=== PATIENT | male | born 1950 | race Caucasian/White ===

== ENCOUNTER 2019-01-05 11:48 | Outpatient (CLI) | payer MEDICARE ==
--- NOTE | 2019-01-05 15:08 | MRI ---
MRI LUMBAR SPINE WITH AND WITHOUT IV CONTRAST: Date: 01/05/19 HISTORY: Lumbar stenosis with neurogenic claudication. Patient complains of lower back pain with pain radiatin g to bilateral hips for about 1 year. History of prior lumbar surgery in 2016. COMPARISON: MRI lumbar spine obtained at [facility] on 11/25/15. FINDINGS: The retroperitoneal structures demonstrate a normal MRI appearance. There is generalized heterogeneity of the bone marrow. The conus medullaris is normal in appearance and terminates at the L1 vertebral body. There is a fatt y filum terminale. T12-L1 Level: There is a broad based disc osteophyte complex with central disc protrusion. This narr ows the ventral subarachnoid space with encroachment on the anterior aspect of the spinal cord. Neura l foramina are patent. This is unchanged compared to prior exam. L1-2 Level: There is a broad based disc osteophyte complex and facet hypertrophic changes. There is generalized mild narrowing of the central spinal canal. There is mild right-sided neural foraminal na rrowing. The left neural foramen is patent. This is overall similar to prior exam. L2-3 Level: There is loss of intervertebral disc height. There are what appear to be end plate degen erative changes with a prominent left lateral disc osteophyte complex present. Broad based disc osteo phyte complex is noted with ligamentous thickening and facet hypertrophic changes. Findings result in moderate narrowing of the central spinal canal. There is enhancement of the end plates at this level , predominantly on the left, and involving the prominent left lateral disc osteophyte complex lateral ly, most likely attributable to prominent degenerative changes at this level. Osteomyelitis is favore d much less likely. There is no abnormal enhancement within the intervertebral disc space. Degenerati ve changes at this level have progressed when compared to the prior exam. There is severe narrowing o f the left neural foramen. The right neural foramen is patent. L3-4 Level: There is a broad based disc osteophyte complex. Facet hypertrophic changes and ligamento us thickening are noted. There is prominence of epidural fat posteriorly. Constellation of these find ings result in mild to moderate narrowing of the central spinal canal. There is mild to moderate bila teral neural foraminal narrowing. There is mild enhancement seen adjacent to the region of the facet joints, which is favored to most likely be attributable to inflammatory changes related to the facet degenerative change at this level as opposed to infectious process. No fluid collection is identified . L4-5 Level: There is evidence of laminectomy defect at this level, which is an interval change from prior exam. There is a mild broad based disc osteophyte complex at this level. Facet hypertrophic rafael nges are present. Mild narrowing of the central spinal canal with narrowing of the lateral recesses b ilaterally, greater on the left. There is moderate to severe right and mild left-sided neural foramin al narrowing. There is mild enhancement involving the end plates anteriorly at this level, which is a gain favored to most likely be attributable to degenerative changes as opposed to osteomyelitis. L5-S1 Level: There is a broad based disc osteophyte complex and facet hypertrophic changes with find ings greater centrally. However, there is only slight effacement of the central aspect of the thecal sac at this level. There is mild right-sided neural foraminal narrowing with moderate left-sided neur al foraminal narrowing. IMPRESSION: 1. Multilevel degenerative changes with progression of degenerative changes at the L2-3 level where there is a broad based disc osteophyte with a larger lateral left disc osteophyte complex. This resul ts in severe left-sided neural foraminal narrowing and also results in moderate to severe narrowing o f the central spinal canal. 2. Varying degrees of neural foraminal narrowing are seen at the remaining levels of the lumbar spin e as described above. 3. Areas of enhancement seen involving the vertebral body end plates at the L2-3 and L4-5 levels, as well as mild enhancement adjacent to the facet joints at the L3-4 level. These findings are most lik mali secondary to degenerative changes, as well as inflammatory changes. Infectious process is favored less likely. POS: RONIT
[2019-01-05] MEDS ORDERED: Gadobenate Dimeglumine 529 MG/1 ML (20ML VIAL) ONE (16:25)
== END 2019-01-05 11:49 | disposition home or self-care (01) ==
LOC: BICMRI 11:48
PROVIDERS: ATTEND Neurological Surgery
DX: M48.062 Spinal stenosis, lumbar region with neurogenic claudication (principal); M48.07 Spinal stenosis, lumbosacral region; M47.816 Spondylosis without myelopathy or radiculopathy, lumbar region; M25.78 Osteophyte, vertebrae
CPT/HCPCS: 72158; 82565; A9577

== ENCOUNTER 2019-03-02 08:23 | Day surgery (SDC) | payer MEDICARE ==
[2019-02-27 08:26] VITALS: BMI 28.5
[2019-03-02 09:27] LABS: Hemoglobin 15.8 g/dL (14.0-18.0); Mean Corpuscular HGB CONC 34.1 g/dL (32.0-36.0); Mean Corpuscular Hemoglobin 33.6 pg (27.0-31.0); Mean Corpuscular Volume 98.4 fL (78.0-98.0); Platelet Count 209 thou/uL (130-400); RBC Distribution Width 11.3 % (11.5-14.5)
[2019-03-02] MEDS ORDERED: Fentanyl 100 MCG/2 ML VIAL ONE ×2 (09:34→11:22)
[2019-03-02 09:46] LABS: Anion Gap 11 mmol/L (10-20); BUN (Urea Nitrogen) 13 mg/dL (8.4-25.7); Calc. Creatinine Clearance 95 mL/min (70-130); Calcium 9.8 mg/dL (7.8-10.44); Carbon Dioxide 30 mmol/L (23-31); Chloride 99 mmol/L (98-107); Estimated GFR-MDRD 72; Glucose 94 mg/dL (80-115); Potassium 4.5 mmol/L (3.5-5.1); Sodium 135 mmol/L (136-145)
--- NOTE | 2019-03-02 14:39 | OP ---
DATE OF PROCEDURE: 03/02/2019 [employer] OPERATIONS SPECIALIST: Toño Hodges PA-C PROCEDURE PERFORMED: L2-L3 laminectomy. DESCRIPTION OF PROCEDURE: The patient was brought to the operating room and intubated. He was rolled in a prone position on gel-filled chest rolls. An incision was made exposing L2 and L3 and the level was confirmed by x-ray. We performed complete L3 and inferior L2 laminectomies, completely decompressing the neural elements of L2-L3. The wound was then extensively irrigated and MAC hemostasis was secured. Vancomycin powder was applied and the wound was then closed in anatomic layers. Job ID: [id number]
== END 2019-03-02 13:12 | disposition home or self-care (01) ==
LOC: SDC 08:23
PROVIDERS: ATTEND Neurological Surgery
PROC: 01NB0ZZ Release Lumbar Nerve, Open Approach (ICD-10-PCS; principal; 2019-03-02)
DX: M48.062 Spinal stenosis, lumbar region with neurogenic claudication (principal); I10 Essential (primary) hypertension; F17.210 Nicotine dependence, cigarettes, uncomplicated; Z79.899 Other long term (current) drug therapy; Z98.1 Arthrodesis status
CPT/HCPCS: 36415; 76000; 80048; 85027; 93005; 93010; J0131; J0690; J3010; J3370

== ENCOUNTER 2019-04-27 15:47 | Inpatient (IN) | payer MEDICARE ==
--- NOTE | 2019-04-27 16:10 | RAD ---
RADIOGRAPH CHEST 1 VIEW: DATE: 04/27/2019 TIME: 3:38 PM HISTORY: 68-year-old male with cough and hypoxemia. COMPARISON: 12/06/2016 FINDINGS: There is a new mild hazy parenchymal density at the right lung base. The rest of the lungs remain adelia ar. Cardiac mediastinal silhouette is normal. No pneumothorax. IMPRESSION: Early infiltrate at right lower lung zone.
[2019-04-27 16:13] LABS: White Blood Cell (WBC) Count 10.4 thou/uL (4.8-10.8)
[2019-04-27 16:14] LABS: Mean Corpuscular HGB CONC 33.7 g/dL (32.0-36.0); Mean Corpuscular Hemoglobin 33.2 pg (27.0-31.0); Mean Corpuscular Volume 98.5 fL (78.0-98.0); Mean Platelet Volume 8.3 fL (7.4-10.4); Platelet Count 202 thou/uL (130-400); RBC Distribution Width 11.5 % (11.5-14.5); Red Blood Cell (RBC) Count 4.53 mill/uL (4.70-6.10)
[2019-04-27] MEDS ORDERED: Azithromycin 500 MG VIAL ONE (16:19)
[2019-04-27 16:33] LABS: Band 10 % (5-11); Lymphocytes 8 % (21-51); MDiff Complete? YES; Metamyelocyte 2 % (0-0); Monocytes 9 % (0-10); Neutrophil 70 % (42-75); Platelet Morphology Comment Appears Adequate; RBC Morphology Normal
[2019-04-27 16:57] LABS: CKMB 1.1 ng/mL (0-6.6)
[2019-04-27] MEDS ORDERED: cefTRIAXone\\ROCEPHIN 1 GM VIAL ONE (17:25)
[2019-04-27 17:37] LABS: ALT (SGPT) 37 U/L (8-55); AST (SGOT) 35 U/L (5-34); Alkaline Phosphatase 55 U/L (40-110); Anion Gap 12 mmol/L (10-20); BUN (Urea Nitrogen) 30 mg/dL (8.4-25.7); Bilirubin, Total 0.6 mg/dL (0.2-1.2); CK (CPK) 43 U/L (30-200); Calc. Creatinine Clearance 0 mL/min (70-130); Calcium 8.3 mg/dL (7.8-10.44); Carbon Dioxide 23 mmol/L (23-31); Chloride 103 mmol/L (98-107); Estimated GFR-MDRD 57; Globulin 3.4 g/dL (2.4-3.5); Glucose 125 mg/dL (80-115); Potassium 4.2 mmol/L (3.5-5.1); Protein, Total 6.4 g/dL (5.8-8.1); Sodium 134 mmol/L (136-145)
[2019-04-27] MEDS ORDERED: Aspirin Chewable 81 MG TAB ONE (19:07)
[2019-04-27] MEDS ORDERED: Guaifenesin DM 100-10/5 ML UDCUP PO PRN (20:58)
[2019-04-27] MEDS ORDERED: HYDROcodone/Acetaminophen 10/325 mg Tablet PO PRN (20:58)
[2019-04-27] MEDS ORDERED: Ondansetron PF 4 MG/2 ML Vial IVP PRN (20:58)
[2019-04-27] MEDS ORDERED: Acetaminophen 325 MG TAB PO PRN (20:58)
[2019-04-27] MEDS ORDERED: Loperamide HCl 2 MG CAP PO PRN (20:58)
[2019-04-27] MEDS ORDERED: Enoxaparin Sodium 40 MG/0.4 ML SYRINGE SC SCH (21:00)
[2019-04-27] MEDS: Famotidine 20 MG TAB PO SCH (22:58)
[2019-04-27] MEDS: guaiFENesin/DM ER PO SCH (22:58)
[2019-04-27] MEDS: Nicotine 14 MG PATCH TD SCH (22:58)
[2019-04-27] MEDS: Sodium Chloride 0.9% 1,000 ML IV SCH (22:59)
[2019-04-27 23:22] VITALS: BMI 26.4
[2019-04-27 23:42] LABS: Troponin I 0.049 ng/mL (< 0.028)
[2019-04-28] MEDS ORDERED: Aspirin 81 mg Enteric Coated Tablet PO SCH (00:15)
[2019-04-28 04:36] LABS: Hemoglobin 12.8 g/dL (14.0-18.0); Mean Corpuscular HGB CONC 33.6 g/dL (32.0-36.0); Mean Corpuscular Hemoglobin 33.3 pg (27.0-31.0); Mean Corpuscular Volume 99.2 fL (78.0-98.0); Mean Platelet Volume 7.7 fL (7.4-10.4); Platelet Count 179 thou/uL (130-400); RBC Distribution Width 11.6 % (11.5-14.5); Red Blood Cell (RBC) Count 3.85 mill/uL (4.70-6.10); White Blood Cell (WBC) Count 11.1 thou/uL (4.8-10.8)
[2019-04-28 04:37] LABS: Band 6 % (5-11); Lymphocytes 11 % (21-51); MDiff Complete? YES; Metamyelocyte 1 % (0-0); Monocytes 8 % (0-10); Neutrophil 74 % (42-75); Platelet Morphology Comment Appears Adequate
[2019-04-28 04:42] LABS: Anion Gap 14 mmol/L (10-20); BUN (Urea Nitrogen) 21 mg/dL (8.4-25.7); Calc. Creatinine Clearance 106 mL/min (70-130); Calcium 8.5 mg/dL (7.8-10.44); Carbon Dioxide 20 mmol/L (23-31); Chloride 106 mmol/L (98-107); Estimated GFR-MDRD 89; Glucose 88 mg/dL (80-115); Potassium 4.3 mmol/L (3.5-5.1); Sodium 136 mmol/L (136-145)
[2019-04-28 04:59] LABS: Troponin I 0.022 ng/mL (< 0.028)
--- NOTE | 2019-04-28 07:18 | HP ---
PRESENTING COMPLAINT: Shortness of breath and weakness. HISTORY OF PRESENT ILLNESS: Mr. Joselito More is a 68-year-old male with past medical history of chronic tobacco use and hypertension, on lisinopril, developed a 3-day history of worsening shortness of breath, diarrhea, body aches, and chills with cough and chest congestion. Cough is relatively minimally productive. He denies any cough contents. He denies any recent travel. He denies any chest pain. He denies any headache or runny nose. On presentation in the ED, his O2 sat was low at 79% on room air. He has been started on 2 L nasal cannula, with improvement to 97%. He admits to previous history of pneumonia. Chest x-ray shows evidence of right lower lobe base pneumonia. The patient has been admitted for pneumonia. PAST MEDICAL HISTORY: Significant for hypertension. PAST SURGICAL HISTORY: Includes knee and back surgery. HOME MEDICATION: Includes lisinopril 20 daily. SOCIAL HISTORY: The patient is residing in the community with his spouse. No history of alcohol abuse. He admits to 1 pack per day tobacco use for the last 20 years. FAMILY HISTORY: Noncontributory. No history of lung cancer. REVIEW OF SYSTEMS: All system review x14 were negative except as mentioned above. PHYSICAL EXAMINATION: VITAL SIGNS: Blood pressure 120/83, pulse of 97 down from 124 on presentation, and O2 sat 97% on 1 L nasal cannula. GENERAL: Average built, middle-aged male, calm, not in any distress, conversant. HEENT: Head is atraumatic and normocephalic. Pupils are equal and reactive to light, on nasal cannula O2. Moist oral mucosa. Anicteric. NECK: No JVD. No carotid bruit. RESPIRATORY: Good air entry except for mild increased over the right base but no wheeze or rhonchi. CARDIOVASCULAR: S1 and S2. No reproducible chest wall tenderness. ABDOMEN: Full, soft, nontender. Bowel sounds positive. EXTREMITIES: No calf tenderness. No pedal edema. NEUROLOGIC: The patient is alert and oriented. Cranial nerves 2 through 12 are grossly intact. LABORATORY DATA: WBC 10.4, neutrophil 70%, and hemoglobin 15. Sodium 134, creatinine 1.2, and glucose 125. Lactic acid 2.5, repeat of 1.0. AST and alkaline phosphatase, normal. CK 43 with CK-MB of 1.1. Troponin 0.06, repeat of 0.07. Influenza flu swab was negative for type A and B. Chest x-ray shows right base pneumonia. Right base infiltrates. EKG showed normal sinus tachycardia with a rate of 124 beats per minute. No ST segment changes. IMPRESSION: 1. Right lower lobe pneumonia. 2. Demand mediated ischemia - mild. 3. History of hypertension. PLAN: We will admit patient. We will manage patient for the following; 1. Pneumonia. We will admit patient to inpatient status. We will give gentle IV fluid hydration with normal saline. We will start empirical antibiotics with Levaquin. Obtain respiratory panel. Obtain sputum for culture and sensitivity as well as blood culture. We will give Tylenol p.r.n. for pain control. We will add Mucomyst as well as guaifenesin to mobilize mucous secretions. Monitor 24 to 48 hours and discharge when able to wean off O2. 2. Hypertension. We will hold lisinopril now given his pneumonia as well as history of tobacco use. We will do Norvasc for now. 3. DVT prophylaxis. Subcutaneus heparin. 4. Advanced directive. The patient is a full code. 5. Demand mediated ischemia. We will do serial set of cardiac enzymes. If still increasing, we will consult Cardiology, but we will monitor for now. Total time spent for review of record, discussion with patient, and evaluation was greater than 60 minutes. Job ID: [id number]
[2019-04-28] MEDS ORDERED: Heparin 5,000 UNITS/ML VIAL SC SCH (09:00)
[2019-04-28] MEDS: Lisinopril 20 MG TAB PO SCH (09:32)
[2019-04-28] MEDS: Amlodipine 5 MG TAB PO SCH (09:32)
[2019-04-28] MEDS: Famotidine 20 MG TAB PO SCH ×2 (09:32→22:19)
[2019-04-28] MEDS: guaiFENesin/DM ER PO SCH ×2 (09:32→22:19)
[2019-04-28] MEDS: Aspirin 325 MG TAB PO SCH (09:33)
[2019-04-28] MEDS: Sodium Chloride 0.9% 1,000 ML IV SCH (12:35)
[2019-04-28] MEDS: hydrALAZINE 20 MG/ML VIAL SLOW IVP PRN ×2 (17:12→23:51)
--- NOTE | 2019-04-28 18:25 | PDOC.HOSPP ---
- Subjective Encounter Date: 04/28/19 Encounter Time: 08:20 Subjective: Pt seen for followup re: pneumonia. States he feels better. - Objective Vital Signs & Weight: Vital Signs (12 hours) Temp Pulse Resp BP BP BP Pulse Ox 04/28/19 16:50 97.9 F 89 18 184/92 H 96 04/28/19 12:40 96 04/28/19 11:55 98.0 F 93 18 155/69 H 94 L 04/28/19 10:29 148/74 H 140/76 04/28/19 07:36 98.3 F 88 18 168/80 H 93 L Pulse Ox Pulse Ox 04/28/19 16:50 04/28/19 12:40 04/28/19 11:55 04/28/19 10:29 93 L 91 L 04/28/19 07:36 Weight Weight 194 lb 14.4 oz I&O: 04/27/19 04/28/19 04/29/19 06:59 06:59 06:59 Intake Total 1430 2400 Output Total 200 850 Balance 1230 1550 Result Diagrams: 04/28/19 04:06 04/28/19 04:06 Additional Labs: Labs and MARs reviewed by me EKG Reviewed by me: Yes (Tele: NSR) Hospitalist ROS - Review of Systems Respiratory: reports: cough, sputum. denies: dry, shortness of breath, hemoptysis, SOB with excertion, pleuritic pain, wheezing Gastrointestinal: reports: diarrhea. denies: nausea, vomiting, abdominal pain, constipation, melena, hematochezia - Medication Medications: Active Medications Generic Name Dose Route Start Last Admin Trade Name [place] PRN Reason Stop Dose Admin Amlodipine Besylate 2.5 mg 04/28/19 09:00 04/28/19 09:32 Norvasc PO 2.5 mg DAILY ERINN Administration Aspirin 325 mg 04/28/19 09:00 04/28/19 09:33 Aspirin PO 325 mg DAILY ERINN Administration Famotidine 20 mg 04/27/19 21:00 04/28/19 09:32 Pepcid PO 20 mg BID ERINN Administration Guaifenesin/Dextromethorphan 2 tab 04/27/19 21:00 04/28/19 09:32 Mucinex Dm PO 2 tab Q12HR ERINN Administration Hydralazine HCl 10 mg 04/28/19 17:04 04/28/19 17:12 Apresoline SLOW IVP 10 mg Q6H PRN Administration SYSTOLIC > 170 Levofloxacin 750 mg/ Device 150 mls @ 100 mls/hr 04/27/19 21:00 04/27/19 22: 59 IVPB 150 mls Q24HR ERINN Administration Sodium Chloride 1,000 mls @ 75 mls/hr 04/27/19 21:00 04/28/19 12:35 Normal Saline 0.9% IV 1,000 mls .[id number] ERINN Administration Lisinopril 20 mg 04/28/19 09:00 04/28/19 09:32 Zestril PO 20 mg DAILY ERINN Administration Nicotine 14 mg 04/27/19 21:00 04/27/19 22:58 Nicoderm Patch TD 14 mg Q24HR ERINN Administration - Exam General Appearance: NAD Eye: anicteric sclera ENT: negative: moist mucosa Neck: supple Heart: RRR, no rubs Respiratory: CTAB, no rales Gastrointestinal: soft, non-tender Psychiatric: normal affect, normal behavior Hosp A/P (1) Pneumonia Code(s): J18.9 - PNEUMONIA, UNSPECIFIED ORGANISM Status: Acute (2) Positive fecal occult blood test Status: Acute (3) HTN (hypertension) Code(s): I10 - ESSENTIAL (PRIMARY) HYPERTENSION Status: Chronic (4) Acute myocardial infarction Code(s): I21.9 - ACUTE MYOCARDIAL INFARCTION, UNSPECIFIED Status: Acute Qualifiers: Myocardial infarction type: type 2 Qualified Code(s): I21.A1 - Myocardial infarction type 2 - Plan continue antibiotics, speech therapy, out of bed/ambulate Swallow eval. Continue levofloxacin. Troponins normalized. Consult GI re +ve FOBT. Monitor vital signs, titrate antihypertensives as needed.
[2019-04-28] MEDS ORDERED: Boudreaux's Butt Paste 60 GM TUBE TOP PRN (18:54)
[2019-04-28] MEDS: Nicotine 14 MG PATCH TD SCH (22:19)
[2019-04-28] MEDS: Multivitamins, Adult 10 ML, Folic Acid 1 MG, Thiamine HCl 100 MG in Dextrose 5 %-0.45 %... IV SCH (23:47)
[2019-04-29] MEDS: Sodium Chloride 0.9% 1,000 ML IV SCH ×3 (01:49→20:21)
--- NOTE | 2019-04-29 02:14 | CON ---
DATE OF CONSULTATION: HISTORY OF PRESENT ILLNESS: Mr. More is a 68-year-old gentleman who is admitted to the hospital for pneumonia. He reports here he had 2 bouts yesterday with a little bit of blood in the stool. His symptoms began last Saturday a week ago with acute onset of nausea, vomiting, diarrhea, and then fever, chills, body aches, and cough. He was unable to sleep for about 72 hours. He reports these symptoms worsened. He took a couple of amoxicillin that he had at home on . With symptoms not improving, he came to the emergency room yesterday, where he was found to be hypoxic and have infiltrative pneumonia in the right lower lobe. He reports he has not had issues with diarrhea in the past. He had a colonoscopy by Dr. Ring states about 5 years ago in [place] with a few polyps removed. He denies any tenesmus or urgency. He has had issues with some urgency in the past for several years, but no blood in the stools. He does complain of perianal pain with wiping now as what the diarrhea has been very watery. With regard to his illness, he has had no antecedent travel. Besides the antibiotics he took on , took no others. He is feeling a little bit better now. PAST HISTORY: Hypertension. PAST SURGICAL HISTORY: Knee and multiple back surgeries. No abdominal surgeries. He had a colonoscopy about 5 years ago at the [facility], it sounds like with Dr. Ring and had a few polyps removed. SOCIAL HISTORY: Smokes two packs per day. He drinks about 20 beers per day. He does not use drugs. HOME MEDICATIONS: Lisinopril. PRESENT MEDICATIONS: 1. Tylenol. 2. Albuterol. 3. Norvasc. 4. Aspirin. 5. Pepcid. 6. Hydralazine. 7. Hydrocodone. 8. Levofloxacin. 9. Lisinopril. 10. Loperamide. 11. Nicotine. REVIEW OF SYSTEMS: Negative for dysphagia, odynophagia, melena, or hematemesis. The patient denies ever use of NSAIDs. PHYSICAL EXAMINATION: VITAL SIGNS: Temperature 97.9, he was 99 on admission on the . Blood pressure 171/84, respirations 18. HEENT: His oropharynx is without lesions. NECK: Supple. LUNGS: Notable for rhonchi and wheezing and rales on both sides. HEART: Has mild sinus tachycardia. ABDOMEN: Soft and nontender. No rebound or guarding. RECTAL: The patient is unable to tolerate a digital exam secondary to the irritation. He has quite a bit of perianal irritation. NEUROLOGICAL: He is alert, oriented to person, place, and time. LABORATORY DATA: White count 11.1. Hemoglobin 12.8, it is 15 on admission. MCV is 99, platelet count 179. Sodium 136, potassium 4.3, chloride 106, bicarb 20, BUN and creatinine are 21 and 0.86. Troponins were 0.07, now 0.02. AST was 35, ALT was 37, alkaline phosphatase 55, bilirubin 0.6. Stool is negative for Clostridium difficile; positive for occult blood. Microbiology is pending. IMAGING STUDIES: Chest x-ray, right lower lung infiltrate. ASSESSMENT: 1. This is a 68-year-old gentleman with history of hypertension, heavy smoker, and chronic alcohol use up to 20 beers per day, who became ill about a week ago with rigors, chills, myalgias, cough, vomiting, and diarrhea. Initially thought he had a virus which may have had, but he remained ill and on , took 2 amoxicillin, however was not getting better. He finally came to the emergency room on Saturday, slightly hypoxic with infiltrates and diagnosed with pneumonia. It seems to be a community-acquired pneumonia associated with diarrhea that is not uncommon. He has been ruled out for Clostridium difficile. If he does not improve, may be reasonable to have Infectious Disease see him as Legionella pneumonia can be seen with significant diarrhea as can chlamydia pneumonia. Some of the atypicals could have quite a bit of diarrhea as well. 2. Rectal bleeding. This seems to be related to perianal irritation from severe diarrhea. I would not recommend endoscopy at this point in time as he has severe respiratory compromise. 3. History of polyps. Colonoscopy 5 years ago. RECOMMENDATIONS: Give him some [employer]t P[employer] rectum. Use Imodium for his diarrhea and treat his pneumonia. If his pneumonia does not improve, I would involve ID. Job ID: [id number]
[2019-04-29 06:26] LABS: Anion Gap 8 mmol/L (10-20); BUN (Urea Nitrogen) 11 mg/dL (8.4-25.7); Calc. Creatinine Clearance 116 mL/min (70-130); Calcium 8.3 mg/dL (7.8-10.44); Carbon Dioxide 24 mmol/L (23-31); Chloride 105 mmol/L (98-107); Estimated GFR-MDRD Greater than 90; Glucose 117 mg/dL (80-115); Magnesium 1.8 mg/dL (1.6-2.6); Potassium 3.4 mmol/L (3.5-5.1); Sodium 134 mmol/L (136-145)
[2019-04-29 07:03] LABS: Hemoglobin 12.6 g/dL (14.0-18.0); Mean Corpuscular HGB CONC 33.8 g/dL (32.0-36.0); Mean Corpuscular Hemoglobin 33.6 pg (27.0-31.0); Mean Corpuscular Volume 99.3 fL (78.0-98.0); Mean Platelet Volume 7.7 fL (7.4-10.4); Platelet Count 224 thou/uL (130-400); RBC Distribution Width 11.5 % (11.5-14.5); Red Blood Cell (RBC) Count 3.76 mill/uL (4.70-6.10); White Blood Cell (WBC) Count 11.2 thou/uL (4.8-10.8)
[2019-04-29] MEDS ORDERED: Potassium Chloride 20 MEQ TAB PO SCH (08:15)
[2019-04-29 08:26] LABS: Band 5 % (5-11); Lymphocytes 18 % (21-51); MDiff Complete? YES; Metamyelocyte 1 % (0-0); Monocytes 7 % (0-10); Myelocyte 3 % (0-0); Neutrophil 65 % (42-75); Platelet Morphology Comment Appears Adequate; RBC Morphology Normal; Reactive Lymphocytes 1 % (0-10)
[2019-04-29] MEDS: guaiFENesin/DM ER PO SCH ×2 (08:33→20:23)
[2019-04-29] MEDS: Aspirin 325 MG TAB PO SCH (08:33)
[2019-04-29] MEDS: Lactinex Tablet PO SCH (08:33)
[2019-04-29] MEDS: Famotidine 20 MG TAB PO SCH ×2 (08:33→20:22)
[2019-04-29] MEDS: Amlodipine 5 MG TAB PO SCH (08:34)
[2019-04-29] MEDS: Lisinopril 20 MG TAB PO SCH (08:36)
[2019-04-29 14:39] LABS: Legionella Urinary Ag Negative (Negative)
--- NOTE | 2019-04-29 17:57 | PDOC.HOSPP ---
- Subjective Encounter Date: 04/29/19 Encounter Time: 09:00 Subjective: Pt seen for followup re: pneumonia. c/o diarrhea. Cough+, small amount of sputum. - Objective Vital Signs & Weight: Vital Signs (12 hours) Temp Pulse Resp BP BP Pulse Ox 04/29/19 16:43 98.9 F 04/29/19 11:30 98.7 F 04/29/19 08:36 185/91 H 04/29/19 08:34 96 04/29/19 08:00 98.4 F 91 22 H 185/91 H 95 04/29/19 07:22 96 Weight Weight 194 lb 14.4 oz I&O: 04/28/19 04/29/19 04/30/19 06:59 06:59 06:59 Intake Total 1430 3990 Output Total 200 1550 Balance 1230 2440 Result Diagrams: 04/29/19 05:34 04/29/19 05:34 Additional Labs: Labs and MARs reviewed by ut Hospitalist ROS - Review of Systems Respiratory: reports: cough, sputum. denies: dry, shortness of breath, hemoptysis, SOB with excertion, pleuritic pain, wheezing Gastrointestinal: reports: diarrhea. denies: nausea, vomiting, abdominal pain, constipation, melena, hematochezia - Medication Medications: Active Medications Generic Name Dose Route Start Last Admin Trade Name Freq PRN Reason Stop Dose Admin Acidophilus 1 tab 04/29/19 09:00 04/29/19 08:33 Floranex PO 1 tab DAILY ERINN Administration Amlodipine Besylate 2.5 mg 04/28/19 09:00 04/29/19 08:34 Norvasc PO 2.5 mg DAILY ERINN Administration Aspirin 325 mg 04/28/19 09:00 04/29/19 08:33 Aspirin PO 325 mg DAILY ERINN Administration Famotidine 20 mg 04/27/19 21:00 04/29/19 08:33 Pepcid PO 20 mg BID ERINN Administration Guaifenesin/Dextromethorphan 2 tab 04/27/19 21:00 04/29/19 08:33 Mucinex Dm PO 2 tab Q12HR ERINN Administration Hydralazine HCl 10 mg 04/28/19 17:04 04/28/19 23:51 Apresoline SLOW IVP 10 mg Q6H PRN Administration SYSTOLIC > 170 Levofloxacin 750 mg/ Device 150 mls @ 100 mls/hr 04/27/19 21:00 04/28/19 22: 19 IVPB 150 mls Q24HR ERINN Administration Sodium Chloride 1,000 mls @ 75 mls/hr 04/27/19 21:00 04/29/19 10:53 Normal Saline 0.9% IV 1,000 mls .[id number] ERINN Administration Multivitamins 10 ml/ Folic 1,011.2 mls @ 100 mls/hr 04/28/19 20:00 04/28/19 23:47 Acid 1 mg/ Thiamine HCl 100 mg IV 1,011.2 mls / Dextrose/Sodium Chloride Q24HR ERINN Administration Lisinopril 20 mg 04/28/19 09:00 04/29/19 08:36 Zestril PO 20 mg DAILY ERINN Administration Nicotine 14 mg 04/27/19 21:00 04/28/19 22:19 Nicoderm Patch TD 14 mg Q24HR ERINN Administration - Exam General Appearance: NAD Eye: PERRL, anicteric sclera ENT: no oropharyngeal lesions, moist mucosa Neck: supple, symmetric Heart: RRR Respiratory: CTAB Gastrointestinal: soft, non-tender Extremities: no clubbing Psychiatric: normal affect, normal behavior Hosp A/P (1) Pneumonia Code(s): J18.9 - PNEUMONIA, UNSPECIFIED ORGANISM Status: Acute (2) Positive fecal occult blood test Status: Acute (3) HTN (hypertension) Code(s): I10 - ESSENTIAL (PRIMARY) HYPERTENSION Status: Chronic (4) Acute myocardial infarction Code(s): I21.9 - ACUTE MYOCARDIAL INFARCTION, UNSPECIFIED Status: Acute Qualifiers: Myocardial infarction type: type 2 Qualified Code(s): I21.A1 - Myocardial infarction type 2 - Plan plan discussed w/ family, continue antibiotics Continue levofloxacin. Check urine Legionella antigen. Consult ID. Appreciate GI service input. Continue Imodium. Monitor vital signs, titrate antihypertensives as needed.
[2019-04-29] MEDS: Nicotine 14 MG PATCH TD SCH (20:25)
--- NOTE | 2019-04-29 21:53 | CON ---
DATE OF CONSULTATION: 04/29/2019 REASON FOR CONSULTATION: Pneumonia with diarrhea. HISTORY OF PRESENT ILLNESS: A 68-year-old who has history of hypertension and prior back surgeries and cervical surgeries, who developed general malaise, some diarrhea and respiratory symptoms for the past week. On arrival, he was a bit hypoxemic, improved with 2 L nasal cannula and he has received levofloxacin since admission. He feels somewhat improved, T-max 99.9 recently. His initial influenza test was negative. C difficile negative and respiratory culture with few respiratory kaitlynn present. Currently, he is feeling better. Denies headaches, little bit of cough, but much less than before. No sputum production. No hemoptysis. No back pain. No dyspnea, abdominal pain or diarrhea. No genitourinary symptoms. PAST MEDICAL HISTORY: Hypertension, back surgeries, knee surgery, cervical surgery. SOCIAL HISTORY: Drinks daily. Current smoker. He is retired from the [employer] industry. Lives about 75 miles from here. ALLERGIES: LATEX. MEDICATIONS: 1. Other than levofloxacin, he is on [place]. 2. Floranex. 3. DuoNeb. 4. Aspirin. 5. Mucinex. 6. Apresoline. 7. Levofloxacin. 8. Multivitamins. 9. Zinc oxide. FAMILY HISTORY: Noncontributory. PHYSICAL EXAMINATION: VITAL SIGNS: T-max 99.9, other vital signs with elevation in systolic blood pressure, pulse 96 and O2 saturation 95. SKIN: Not remarkable, no lymphadenopathy. HEENT: Ocular movements conjugate. Oral cavity normal. NECK: Supple. No jugular vein distention. LUNGS: Symmetric air entry. Few crackles on the right side base, S1-S2 regular rate without murmurs. ABDOMEN: Soft, not distended or tender. No ascites. No bladder distention, no joint inflammatory activity. EXTREMITIES: Moves extremities equally. Cognitive function appears to be intact. Legionella pneumophilia antigen negative, white cell count was 10.4, platelets were 202 with a normal differential on arrival. A little bit of increase in metamyelocytes. White cell count now is 11.2, hemoglobin 12.6, creatinine was 1.27 and now is 0.78. Liver profile with AST of 35, albumin 3.0 and CK 43. IMAGING: Chest x-ray with small area of infiltrate right lower lobe lung zone. GI consult was obtained. Dr. Oakley evaluated the patient. This was because of rectal bleeding, felt to be due to perianal irritation from diarrhea. ASSESSMENT: Chronic smoking, respiratory symptoms with diarrhea with improvement. DISCUSSION: Differential diagnosis includes respiratory viral syndrome, influenza or other respiratory virus versus a bacterial pneumonia. A respiratory virus is the more likely scenario here. Aspiration pneumonia is less likely. The antigen assays for influenza are notoriously for low sensitivity and we will go ahead and submit a respiratory virus PCR panel. The patient is anxious to go home and may consider discharge planning with followup in the outpatient setting on oral levofloxacin or doxycycline. Job ID: [id number] [facility]
[2019-04-29] MEDS: Multivitamins, Adult 10 ML, Folic Acid 1 MG, Thiamine HCl 100 MG in Dextrose 5 %-0.45 %... IV SCH (22:38)
--- NOTE | 2019-04-29 22:38 | PRG ---
DATE OF SERVICE: 04/29/2019 SUBJECTIVE: This is a 68-year-old male, hospitalized with rectal bleeding, diarrhea, and also had pneumonia. He is on IV antibiotics. His stool for C. difficile came back negative. The stool for occult blood came back positive. The patient is on antibiotic therapy. Continues to complain of productive cough. He has no chest pain, no dyspnea. His diarrhea persists. There is no abdominal pain. No nausea, vomiting. PHYSICAL EXAMINATION: VITAL SIGNS: He is afebrile. Temperature 98.9 degrees Fahrenheit, pulse is 96, blood pressure is 184/91. CARDIOVASCULAR SYSTEM: First and second heart sounds normal. LUNGS: Clear to auscultation. ABDOMEN: Soft. No organomegaly. No tenderness. No masses. CLINICAL IMPRESSION: 1. Pneumonia. 2. Diarrhea, hematochezia with negative stool for C. difficile antigen toxin. 3. Hypertension. 4. Coronary artery disease. RECOMMENDATIONS: 1. Continue IV antibiotics. 2. May obtain stool for parasites, Cryptosporidium, and also culture. Job ID: [id number]
[2019-04-29] MEDS: hydrALAZINE 20 MG/ML VIAL SLOW IVP PRN (22:44)
[2019-04-30] MEDS: Sodium Chloride 0.9% 1,000 ML IV SCH (04:55)
[2019-04-30 06:28] LABS: #Eosinphils 0.2 thou/uL (0.0-0.7); #Lymphocytes 2.2 thou/uL (1.20-3.40); #Monocytes 1.2 thou/uL (0.11-0.59); #Neutrophils 8.5 thou/uL (1.40-6.50); %Basophils 0.4 % (0.0-1.0); %Eosinophils 1.3 % (0.0-10.0); %Lymphocytes 18.2 % (21.0-51.0); %Monocytes 9.8 % (0.0-10.0); %Neutrophils 70.3 % (42.0-75.0); Hemoglobin 13.5 g/dL (14.0-18.0); Mean Corpuscular HGB CONC 33.3 g/dL (32.0-36.0); Mean Corpuscular Volume 99.1 fL (78.0-98.0); Mean Platelet Volume 7.6 fL (7.4-10.4); Platelet Count 314 thou/uL (130-400); RBC Distribution Width 11.6 % (11.5-14.5)
[2019-04-30 06:47] LABS: Anion Gap 9 mmol/L (10-20); BUN (Urea Nitrogen) 9 mg/dL (8.4-25.7); Calc. Creatinine Clearance 114 mL/min (70-130); Calcium 8.7 mg/dL (7.8-10.44); Carbon Dioxide 25 mmol/L (23-31); Chloride 103 mmol/L (98-107); Estimated GFR-MDRD Greater than 90; Glucose 97 mg/dL (80-115); Sodium 133 mmol/L (136-145)
[2019-04-30 07:44] VITALS: TEMP 98.6
[2019-04-30] MEDS: Amlodipine 5 MG TAB PO SCH (08:09)
[2019-04-30] MEDS: Lactinex Tablet PO SCH (08:10)
[2019-04-30] MEDS: guaiFENesin/DM ER PO SCH (08:10)
[2019-04-30] MEDS: Famotidine 20 MG TAB PO SCH (08:10)
[2019-04-30] MEDS: Lisinopril 20 MG TAB PO SCH (08:11)
[2019-04-30] MEDS: Aspirin 325 MG TAB PO SCH (08:11)
[2019-04-30] MEDS ORDERED: Potassium Phosphate 15 MMOL in Sodium Chloride 0.9% 250 ML 250 ML IVPB SCH (11:45)
[2019-04-30 12:04] VITALS: BP 156/82
[2019-04-30] MEDS ORDERED: PHOS-NAK 1 PKT PACK PO SCH (12:30)
--- NOTE | 2019-04-30 18:35 | DIS ---
DATE OF ADMISSION: 04/27/2019 DATE OF DISCHARGE: 04/30/2019 PRIMARY CARE PROVIDER: Louisa Laughlin, KEEGAN DISCHARGE DIAGNOSES: 1. Community-acquired pneumonia. 2. Chronic diarrhea. 3. Tobacco abuse. 4. Alcohol abuse. 5. Hyponatremia. 6. Hypokalemia. 7. Nrt-DQ-oyybadkkl myocardial infarction type 2. 8. Hypophosphatemia. 9. Hypertensive urgency. CONDITION OF PATIENT ON THE DAY OF DISCHARGE: Stable. I assessed Mr. More on the day of discharge. He denies any chest pain or shortness of breath. Vital signs are stable. S1 and S2 are heard, regular. Lungs are clear to auscultation bilaterally. CONSULTATIONS DURING THIS HOSPITALIZATION: Gastroenterology, Dr. Oakley and Infectious Diseases, Dr. Hernandez. DISCHARGE MEDICATIONS: 1. Lisinopril 20 mg daily. 2. Nicotine 14 mg patch daily. 3. Amlodipine 5 mg daily. 4. Lactobacillus one tablet daily. 5. Levofloxacin 750 mg daily. 6. Thiamine 100 mg daily. POST-DISCHARGE FOLLOWUP: The patient is advised to follow up with primary care provider in 3 to 5 days' time. HOSPITAL COURSE: Mr. More is a pleasant 68-year-old gentleman, who was admitted to [facility] on 04/27/2019, for pneumonia and chronic diarrhea. Please refer to Dr. Braga's history and physical note dated 04/27/2019, for further details. He had initially indeterminate troponins, which subsequently normalized. Initial elevation was most likely secondary to myy-EU-htqmoouru myocardial infarction type 2. He was seen by Gastroenterology and ID services. He has been started on Floranex. He also received p.r.n. Imodium, with resolution of diarrhea. He also had respiratory virus panel checked, it was negative. At the time of this dictation, final respiratory culture and blood culture reports are pending. He is advised to follow up with his primary care provider for the same. He also had elevated blood pressures. He has been started on amlodipine. He has been advised to check his blood pressure and heart rate 3 times a day and show the readings to his primary care provider. He has been advised to stop tobacco and alcohol abuse. Many thanks for allowing me to participate in your patient's care. Please feel free to contact me with any questions or concerns. ACTIVITY: No restrictions. DIET: Heart healthy. DISCHARGE DESTINATION: Home. TIME SPENT: Total amount of time spent coordinating this discharge: 32 minutes. Job ID: [id number]
== END 2019-04-30 12:52 | disposition home or self-care (01) | DRG 193 ==
LOC: ERS 15:47 → T4-A 22:24 → 2NO 22:25 → T4-A 04-28 23:37
PROVIDERS: ADMIT Internal Medicine; ATTEND Internal Medicine
DX: J18.9 Pneumonia, unspecified organism (principal); I21.A1 Myocardial infarction type 2; E87.1 Hypo-osmolality and hyponatremia; K52.9 Noninfective gastroenteritis and colitis, unspecified; F10.10 Alcohol abuse, uncomplicated; E87.6 Hypokalemia; I25.10 Atherosclerotic heart disease of native coronary artery without angina pectoris; E83.39 Other disorders of phosphorus metabolism; I16.0 Hypertensive urgency; Z86.010 Personal history of colon polyps; Z91.040 Latex allergy status
CPT/HCPCS: 36415; 71045; 80048; 80053; 82274; 82550; 82553; 83605; 83735; 84100; 84484; 85025; 87040; 87070; 87205; 87324; 87449; 87633; 87804; 87899; 93005; 94640; 94760; 96365; 96367; J0360; J0456; J0696; J1644; J1956; J3411; J7042; J7620

== ENCOUNTER 2019-07-20 08:10 | Outpatient (CLI) | payer MEDICARE ==
[2019-07-20 14:03] LABS: #Basophils 0.1 thou/uL (0.0-0.2); #Eosinphils 0.3 thou/uL (0.0-0.7); #Lymphocytes 1.9 thou/uL (1.20-3.40); #Monocytes 0.7 thou/uL (0.11-0.59); #Neutrophils 5.3 thou/uL (1.40-6.50); %Basophils 1.3 % (0.0-1.0); %Eosinophils 3.2 % (0.0-10.0); %Lymphocytes 23.2 % (21.0-51.0); %Monocytes 8.7 % (0.0-10.0); %Neutrophils 63.6 % (42.0-75.0); Mean Corpuscular HGB CONC 34.2 g/dL (32.0-36.0); Mean Corpuscular Volume 96.6 fL (78.0-98.0); Mean Platelet Volume 7.7 fL (7.4-10.4); Platelet Count 221 thou/uL (130-400); RBC Distribution Width 12.4 % (11.5-14.5); Red Blood Cell (RBC) Count 4.84 mill/uL (4.70-6.10); White Blood Cell (WBC) Count 8.2 thou/uL (4.8-10.8)
[2019-07-20 14:18] LABS: Hemoglobin A1c 4.9 % (4.0-6.0)
[2019-07-20 14:30] LABS: Anion Gap 14 mmol/L (10-20); BUN (Urea Nitrogen) 13 mg/dL (8.4-25.7); Calc. Creatinine Clearance 0 mL/min (70-130); Calcium 9.7 mg/dL (7.8-10.44); Carbon Dioxide 24 mmol/L (23-31); Chloride 105 mmol/L (98-107); Estimated GFR-MDRD 75; Glucose 84 mg/dL (80-115); Potassium 3.8 mmol/L (3.5-5.1); Sodium 139 mmol/L (136-145)
== END 2019-07-20 08:11 | disposition home or self-care (01) ==
LOC: LABBT 08:10
PROVIDERS: ATTEND Surgery
DX: Z01.818 Encounter for other preprocedural examination (principal); K63.5 Polyp of colon
CPT/HCPCS: 80048; 83036; 85025

== ENCOUNTER 2019-07-20 12:30 | Inpatient (IN) | payer MEDICARE ==
[2019-07-20 11:52] VITALS: BMI 28.5
[2019-07-28] MEDS ORDERED: ceFOXitin 2 GM/50 ML Duplex BAG ONE (07:29)
[2019-07-28] MEDS ORDERED: Dexamethasone 4 mg/ml Vial ONE (08:18)
[2019-07-28] MEDS ORDERED: Midazolam HCl 2 mg/2 ml Vial ONE (08:18)
[2019-07-28] MEDS ORDERED: Fentanyl 100 MCG/2 ML VIAL ONE ×3 (08:18→12:40)
[2019-07-28] MEDS ORDERED: Albumin 5% 500 ML ONE (09:15)
[2019-07-28] MEDS ORDERED: Ketamine 50 MG/ML (10ML VIAL) ONE (09:15)
[2019-07-28] MEDS ORDERED: Fentanyl 250 MCG/5 ML VIAL ONE (09:15)
[2019-07-28] MEDS ORDERED: Glycopyrrolate 0.2 MG/ML 5 ML SYRINGE ONE (10:19)
[2019-07-28] MEDS ORDERED: Bupivacaine HCl 0.5%/Epinephrine 1:200,000/PF 30 ml Vial ONE (10:19)
[2019-07-28] MEDS ORDERED: Rocuronium Bromide 10 MG/ML (10ML VIAL) ONE (10:19)
[2019-07-28] MEDS ORDERED: PROPOFOL 200 MG/20 ML VIAL ONE (10:19)
[2019-07-28] MEDS ORDERED: Ketorolac Tromethamine 30 MG/ML VIAL ONE ×2 (10:19)
[2019-07-28] MEDS ORDERED: Ondansetron PF 4 MG/2 ML Vial ONE (10:19)
[2019-07-28] MEDS ORDERED: PHENYLEPHRINE-NS 100 MCG/ML 10 ML SYRINGE ONE ×2 (10:19→10:49)
[2019-07-28] MEDS ORDERED: Lidocaine 1% PF 5 ML VIAL ONE (10:19)
[2019-07-28] MEDS ORDERED: Dexamethasone 20 MG/5 ML VIAL ONE ×2 (10:19)
[2019-07-28] MEDS ORDERED: Phenylephrine 10 MG/ML VIAL ONE (10:47)
[2019-07-28] MEDS ORDERED: cefOXitin 2 GM VIAL ONE (11:06)
[2019-07-28] MEDS ORDERED: Ondansetron HCl/PF 4 MG/2 ML Vial IVP PRN (11:43)
[2019-07-28] MEDS ORDERED: Promethazine HCl 25 MG/ML VIAL SLOW IVP PRN (11:43)
[2019-07-28] MEDS ORDERED: Promethazine HCl 25 MG/ML VIAL IM PRN ×3 (11:43→12:18)
[2019-07-28] MEDS ORDERED: hydrALAZINE 20 MG/ML VIAL SLOW IVP PRN (11:52)
[2019-07-28] MEDS ORDERED: Ondansetron PF 4 MG/2 ML Vial IVP PRN ×2 (11:52→12:18)
[2019-07-28] MEDS ORDERED: diphenhydrAMINE 50 MG/ML VIAL IVP PRN (12:18)
[2019-07-28] MEDS ORDERED: diphenhydrAMINE 50 MG/ML VIAL IM PRN (12:18)
[2019-07-28] MEDS ORDERED: diphenhydrAMINE 25 MG CAP PO PRN (12:18)
[2019-07-28] MEDS ORDERED: Naloxone HCl 0.4 mg/ml Vial IV PRN (12:18)
[2019-07-28] MEDS ORDERED: Zolpidem Tartrate 5 MG TAB PO PRN (12:18)
[2019-07-28] MEDS ORDERED: fentaNYL Citrate/PF 2,000 MCG in Sodium Chloride 0.9% 60 ML IV PRN (12:18)
[2019-07-28] MEDS ORDERED: Communication Order-Pharmacy FS SCH (12:30)
[2019-07-28] MEDS: D5 1/2 NS w/20 mEq KCL 1,000 ML IV SCH (14:21)
[2019-07-28] MEDS: cefOXitin Sodium/Dextrose,Iso 2 GM in Premix Bag 1 BAG IVPB SCH (18:21)
[2019-07-28] MEDS: Famotidine 20 MG TAB PO SCH (20:45)
[2019-07-28] MEDS: Famotidine/PF 20 mg/2ml Vial SLOW IVP SCH (23:49)
[2019-07-29] MEDS: cefOXitin Sodium/Dextrose,Iso 2 GM in Premix Bag 1 BAG IVPB SCH (01:19)
[2019-07-29 05:43] LABS: #Basophils 0.1 thou/uL (0.0-0.2); #Lymphocytes 1.2 thou/uL (1.20-3.40); #Monocytes 1.4 thou/uL (0.11-0.59); #Neutrophils 7.7 thou/uL (1.40-6.50); %Basophils 0.9 % (0.0-1.0); %Lymphocytes 11.3 % (21.0-51.0); %Monocytes 13.6 % (0.0-10.0); %Neutrophils 74.2 % (42.0-75.0); Hemoglobin 11.8 g/dL (14.0-18.0); Mean Corpuscular HGB CONC 31.8 g/dL (32.0-36.0); Mean Corpuscular Hemoglobin 31.4 pg (27.0-31.0); Mean Corpuscular Volume 98.7 fL (78.0-98.0); Mean Platelet Volume 7.7 fL (7.4-10.4); Platelet Count 194 thou/uL (130-400); RBC Distribution Width 11.9 % (11.5-14.5); Red Blood Cell (RBC) Count 3.75 mill/uL (4.70-6.10); White Blood Cell (WBC) Count 10.4 thou/uL (4.8-10.8)
[2019-07-29 06:07] LABS: Anion Gap 12 mmol/L (10-20); BUN (Urea Nitrogen) 12 mg/dL (8.4-25.7); Calc. Creatinine Clearance 91 mL/min (70-130); Calcium 8.7 mg/dL (7.8-10.44); Carbon Dioxide 22 mmol/L (23-31); Chloride 105 mmol/L (98-107); Estimated GFR-MDRD 69; Glucose 107 mg/dL (80-115); Potassium 4.2 mmol/L (3.5-5.1); Sodium 135 mmol/L (136-145)
[2019-07-29] MEDS: D5 1/2 NS w/20 mEq KCL 1,000 ML IV SCH ×2 (06:44→14:11)
[2019-07-29] MEDS: Famotidine 20 MG TAB PO SCH ×2 (08:59→20:51)
[2019-07-29] MEDS: Famotidine/PF 20 mg/2ml Vial SLOW IVP SCH ×2 (09:00→20:51)
--- NOTE | 2019-07-29 09:35 | OP ---
DATE OF PROCEDURE: 07/28/2019 PREOPERATIVE DIAGNOSIS: Colon mass. POSTOPERATIVE DIAGNOSIS: Colon mass. PROCEDURE PERFORMED: Extended right colectomy including splenic flexure with ileo-descending colon anastomosis, splenic flexure mobilization. ANESTHESIA: General. ESTIMATED BLOOD LOSS: 200 mL. COMPLICATIONS: None. FINDINGS: The polyp is at the hepatic flexure of colon. DESCRIPTION OF PROCEDURE: The patient as taken to the operating room and laid supine on the operating room table. After general anesthetic was obtained, a Schrader was placed. He was placed in lithotomy position. His abdomen was shaved, prepped, and draped in a sterile fashion. Left subcostal 5-mm Optiview trocar was placed in usual fashion. High-flow pneumoperitoneum was obtained. Two lower abdominal 5-mm ports were placed. The patient had transverse colon fully encased in fat tissue. The blue dyed segment of the colon could not be seen. Decision was made to open. Midline incision was made. Bookwalter retractor was placed. The splenic flexure was mobilized in the area of supposed polyp or mass. There was no blue dye seen. The splenic flexure was fully mobilized around to the descending colon. The greater omentum was taken off the transverse colon to fully expose it. Again, there was no evidence of blue dye seen. There was no palpable abnormality either. In the process of splenic flexure mobilization, this part of the colon was ischemic. JULISA 75 stapler was fired across the midtransverse colon. A reload was fired across the descending colon. The mesentery was taken using the Impact LigaSure. Opening this on the back table revealed no obvious mass. There was no blue dye seen. There was an area of previous polypectomy. Now, the right colon was mobilized along the white line of Toldt and in the area just proximal to the hepatic flexure of colon, there was blue dye seen. This was very difficult to see without fully mobilizing and taking the fairly thick omental fat off the hepatic flexure of colon. There was a palpable mass felt in this area too. JULISA 75 fired across the terminal ileum. The rest of the right colon was taken out using the Impact LigaSure for its blood vessels. The small bowel was able to brought up against the descending colon in an antimesenteric fashion. Enterotomy was made on the antimesenteric surface of each and a [id number] JULISA 75 stapled anastomosis was performed. The common enterotomy was closed using running 3-0 Vicryl. 3-0 Vicryl serosal sutures were used to run back the other way on the serosal layer. Crotch stitch was placed using silk. Staple line did not appear ischemic. There was no evidence of intraabdominal bleeding. All instrument counts, needle counts, and lap counts were correct. Midline fascia closed using #1 PDS from the top to bottom, tied in the middle. Subcutaneous tissues were irrigated and the skin was closed using 3-0 Vicryl, 4-0 Monocryl, and Dermabond. The patient was sent to Recovery in stable condition. Job ID: [id number]
--- NOTE | 2019-07-29 09:59 | PDOC.GSPN ---
Surgery Progress Note: Subj - Subjective Narrative: Mr. Joselito More is a 68 y.o. male that is post op day 1 for a right hemicolectomy to remove a suspicious polyp. He reports that he is feeling better and denies any overnight events. He has abdominal pain only when moving around focused mainly in the LUQ. When moving it is an "achy" 7/10 without radiation or whenever he takes a deep breath. He reports 0/10 pain whenever he is lying down or motionless. He has been able to ambulate making a full loop of the surgical floor. The pain He also reports a decreased appetite and associates it to the food he received. He has been able to tolerate what he did eat without nausea, dyspepsia, or reflux symptoms. He has not had a bowel movement or flatulence. He denies any shortness of breath, cough, edema. Surgery Progress Note: Obj - Vital signs Vital signs: Vital Signs - Most Recent Temp Pulse Resp BP Pulse Ox 98.5 F 69 14 134/80 95 07/29/19 08:05 07/29/19 08:05 07/29/19 08:05 07/29/19 08:05 07/29/19 08:05 - Physical Exam General: no distress, well developed, well nourished Neck: no bruits Cardiovascular: regular rate and rhythm, no murmur, other (No lower extremity edema.) Respiratory: clear to auscultation, normal expansion, normal respiratory effort. negative: wheezing Abdomen: soft, appropriately tender Hernia: none Wound: dressing clean,dry,intact. negative: drainage, erythma/edema Surgery Progress Note: Results - Labs Result Diagrams: 07/29/19 05:20 07/29/19 05:20 Lab results: Laboratory Results - last 24 hr 07/29/19 07/29/19 05:20 05:20 WBC 10.4 RBC 3.75 L Hgb 11.8 L Hct 37.0 L MCV 98.7 H MCH 31.4 H MCHC 31.8 L RDW 11.9 Plt Count 194 MPV 7.7 Neutrophils % 74.2 Lymphocytes % 11.3 L Monocytes % 13.6 H Eosinophils % 0.0 Basophils % 0.9 Neutrophils # 7.7 H Lymphocytes # 1.2 Monocytes # 1.4 H Eosinophils # 0.0 Basophils # 0.1 Sodium 135 L Potassium 4.2 Chloride 105 Carbon Dioxide 22 L Anion Gap 12 BUN 12 Creatinine 1.07 Estimated GFR (MDRD) 69 Glucose 107 Calcium 8.7 Surgery Progress Note: A/P - Problem (1) Status post colon resection Current Visit: Yes Status: Acute Assessment and Plan: Mr. Josleito More is a 68 y.o. male who is post op day 1 of a colon resection: Pain has been well controlled and is able to ambulate well. He is doing well and denies any overnight events. With his tolerance of the liquid diet, I would consider slowly advancing the diet with Dr. Moraes's approval. With his previous hx of Pneumonia in Nov, and having a lower O2 Saturation this morning (93%) we discussed the importance of incentive spirometry to prevent any post-operative pneumonia. Addendum - Physician - Physician Attestation Date/Time: 07/29/19 4125 I personally performed or re-performed the physical examination and medical decision making. I have verified all student documentation or findings, including history, physical exam and/or medical decision making. Full liquids TKO IVF
[2019-07-30] MEDS: Famotidine 20 MG TAB PO SCH (08:47)
[2019-07-30] MEDS: Famotidine/PF 20 mg/2ml Vial SLOW IVP SCH (08:48)
--- NOTE | 2019-07-30 10:42 | DIS ---
DATE OF ADMISSION: 07/28/2019 DATE OF DISCHARGE: 07/30/2019 ADMITTING DIAGNOSIS: Colon mass. DISCHARGE DIAGNOSIS: Colon mass. PROCEDURE PERFORMED: Extended right colectomy by Dr. Moraes without complication. CONDITION ON DISCHARGE: Stable. STAFF: Huang Moraes MD HOSPITAL COURSE: On postop day 1, the patient is tolerating clear liquids. He has advanced to full liquids. One episode of vomiting postop day 1 night. However, on postop day #2, he is doing well. He is tolerating full liquid. He is ambulatory. He is able to urinate without the catheter. He is going to be discharged home. Prescriptions for Ultram and Zofran sent to [facility] in [place]. Job ID: [id number]
[2019-07-30 17:14] VITALS: BP 143/80; TEMP 98.1
--- NOTE | 2019-08-02 22:30 | PQF ---
JOSE ARORA BRYAN DAVID MD [id number] [id number] CLINICAL DOCUMENTATION CLARIFICATION FORM: POST DISCHARGE Addendum to original discharge summary date: ____ Late entry note date: __ DATE:08/02/2019 ATTN:ESEQUIEL LOPEZ MD Please exercise your independent, professional judgment in responding to the clarification form. Clinical indicators are provided on the bottom of this form for your review Please check appropriate box(s): kindly clarify the ischemic colon [ ] Acute ischemia of colon [ ] Chronic ischemia of colon [ ] Ischemic colon NOS [ ] Other diagnosis [ X] Unable to determine For continuity of documentation, please document condition throughout progress notes and discharge summary. Thank You. CLINICAL INDICATORS - SIGNS / SYMPTOMS / LABS In the process of splenic flexure mobilization this part of the colon was ischemic -Documented in OP note on 07/28 by Esequiel Lopez MD Colon Mass- Documented in OP note on 07/28 by Esequiel Lopez MD Findings:The polyp is at the hepatic flexure of colon- Documented in OP note on 07/28 by Esequiel Lopez MD RISK FACTORS Findings:The polyp is at the hepatic flexure of colon- Documented in OP note on 07/28 by Esequiel Lopez MD TREATMENTS: Extended right colectomy including splenic flexure with ileo-descending colon anastomosis splenic flexure mobilization - Documented in OP note on 07/28 by Esequiel Lopez MD [employer] Sexual Health Physician [employer] Winform Viewer(This form is maintained as a part of the permanent medical record) 2014 [employer]. All Rights Reserved [email or web address] [phone] ARIE
== END 2019-07-30 12:09 | disposition home or self-care (01) | DRG 330 ==
LOC: SURG A 07-28 06:52 → SURG B 07-28 13:50
PROVIDERS: ADMIT Surgery; ATTEND Surgery
PROC: 0DBF0ZZ Excision of Right Large Intestine, Open Approach (ICD-10-PCS; principal; 2019-07-29)
PROC: 0D1E0ZE Bypass Large Intestine to Large Intestine, Open Approach (ICD-10-PCS; 2019-07-29)
DX: K63.9 Disease of intestine, unspecified (principal); K55.9 Vascular disorder of intestine, unspecified; K63.5 Polyp of colon; Z87.01 Personal history of pneumonia (recurrent); R11.10 Vomiting, unspecified; I10 Essential (primary) hypertension
CPT/HCPCS: 36415; 80048; 85025; 88307; 88309; J0670; J0694; J1100; J1885; J2001; J2250; J2370; J2405; J2704; J3010; J3490; P9045

== ENCOUNTER 2019-10-09 08:44 | Outpatient (CLI) | payer MEDICARE, OTHER ==
[2019-10-10 13:14] LABS: SARS-CoV-2 MS2 Positive; SARS-CoV-2 N Gene Negative; SARS-CoV-2 S Gene Negative; SARS-CoV-2 orf1ab Negative
== END 2019-10-09 08:45 | disposition home or self-care (01) ==
LOC: LABBT 08:44
PROVIDERS: ATTEND Surgery
DX: Z11.59 Encounter for screening for other viral diseases (principal); K43.2 Incisional hernia without obstruction or gangrene
CPT/HCPCS: 87635; U0002

== ENCOUNTER 2019-10-14 06:53 | Day surgery (SDC) | payer MEDICARE ==
[2019-10-09 14:18] VITALS: BMI 28.5
[2019-10-14] MEDS ORDERED: Ketorolac Tromethamine 30 MG/ML VIAL ONE (09:42)
[2019-10-14] MEDS ORDERED: Fentanyl 100 MCG/2 ML VIAL ONE ×2 (09:42→12:15)
[2019-10-14] MEDS ORDERED: Midazolam HCl 2 mg/2 ml Vial ONE (09:42)
[2019-10-14] MEDS ORDERED: EPHEDRINE 25 MG/5 ML SYRINGE ONE (09:42)
[2019-10-14] MEDS ORDERED: Lidocaine 1% PF 5 ML VIAL ONE (09:42)
[2019-10-14] MEDS ORDERED: PHENYLEPHRINE-NS 100 MCG/ML 10 ML SYRINGE ONE (09:42)
[2019-10-14] MEDS ORDERED: Dexamethasone 20 MG/5 ML VIAL ONE (09:42)
[2019-10-14] MEDS ORDERED: PROPOFOL 200 MG/20 ML VIAL ONE (09:42)
[2019-10-14] MEDS ORDERED: Rocuronium Bromide 10 MG/ML (10ML VIAL) ONE (09:42)
[2019-10-14] MEDS ORDERED: Ondansetron PF 4 MG/2 ML Vial ONE (09:42)
[2019-10-14] MEDS ORDERED: Glycopyrrolate 0.2 MG/ML 5 ML SYRINGE ONE (09:42)
[2019-10-14] MEDS ORDERED: Lidocaine 1% w/Epinephrine 1:100K 20 ML VIAL ONE (09:45)
[2019-10-14] MEDS ORDERED: Bupivacaine 0.25% HCL 30 ML VIAL ONE (09:45)
[2019-10-14] MEDS ORDERED: HYDROcodone/Acetaminophen 5/325 mg Tablet ONE (12:58)
--- NOTE | 2019-10-15 14:34 | OP ---
DATE OF PROCEDURE: 10/14/2019 PREOPERATIVE DIAGNOSIS: Incisional hernia. POSTOPERATIVE DIAGNOSIS: Incisional hernia. PROCEDURE PERFORMED: Da Marichuy laparoscopic incisional hernia repair with mesh, 8 x [address] ANESTHESIA: General. ESTIMATED BLOOD LOSS: Minimal. COMPLICATIONS: None. SPECIMEN: None. FINDINGS: Incisional hernia. DESCRIPTION OF PROCEDURE: The patient was taken to the operating room and laid supine on the operating room table. After general anesthetic was obtained, a Schrader was placed. The abdomen was prepped and draped in a sterile fashion. A left subcostal 5 mm Optiview trocar was placed in usual fashion. High-flow pneumoperitoneum was obtained. Left lateral 11 mm port as well as a left lower quadrant 8 mm robotic port were all placed under direct visualization. The subcostal ports were switched out to a robotic 8 mm port. There were some adhesions to the posterior abdominal wall near the hernia. These were taken down sharply. There was some small intestine in the hernia sac that was carefully dissected out and not injured. There was a large midline defect. This was closed using #1 V-Loc running that was parachuted down in order to facilitate closure with less tension. This completely closed the defect. 8 x [address] mesh was then rolled, marked, and placed into the abdominal cavity. It was held up against the posterior abdominal wall in the middle over the hernia using the needle from the V-Loc. A 2-0 V-Loc was then used to sew this mesh to the posterior fascia circumferentially. All needles were removed from the abdomen and accounted for, good coverage of the defect with the mesh. All incisions were localized, and the 11 mm trocar sites were closed using GraNee needle and 0 Vicryl tie. All ports were removed under direct visualization without bleeding. Pneumoperitoneum was let down. A 4-0 Monocryl and Dermabond were used to close all skin incisions. The patient was sent to Recovery in stable condition. All instrument counts, needle counts, and lap counts were correct. Job ID: [id number]
== END 2019-10-14 14:05 | disposition home or self-care (01) ==
LOC: SDC 06:53
PROVIDERS: ATTEND Surgery
PROC: 0WUF4JZ Supplement Abdominal Wall with Synthetic Substitute, Percutaneous Endoscopic Approach (ICD-10-PCS; principal; 2019-10-14)
DX: K43.2 Incisional hernia without obstruction or gangrene (principal); I10 Essential (primary) hypertension; Z87.891 Personal history of nicotine dependence; Z90.49 Acquired absence of other specified parts of digestive tract
CPT/HCPCS: J0690; J1100; J1885; J2001; J2250; J2405; J2704; J3010; S0020

== ENCOUNTER 2021-12-16 17:32 | Inpatient (IN) | payer MEDICARE ==
[2021-12-16 18:04] LABS: Hemoglobin 17.2 g/dL (14.0-18.0); Mean Corpuscular HGB CONC 33.2 g/dL (32.0-36.0); Mean Corpuscular Volume 99.3 fL (78.0-98.0); Mean Platelet Volume 7.1 fL (7.4-10.4); Platelet Count 256 thou/uL (130-400); RBC Distribution Width 11.4 % (11.5-14.5); White Blood Cell (WBC) Count 20.2 thou/uL (4.8-10.8)
[2021-12-16 18:25] LABS: ALT (SGPT) 49 U/L (8-55); AST (SGOT) 29 U/L (5-34); Albumin 4.1 g/dL (3.4-4.8); Alkaline Phosphatase 69 U/L (40-110); Anion Gap 20 mmol/L (10-20); BUN (Urea Nitrogen) 59 mg/dL (8.4-25.7); Bilirubin, Total 0.8 mg/dL (0.2-1.2); Calc. Creatinine Clearance 0 mL/min (70-130); Calcium 9.7 mg/dL (7.8-10.44); Carbon Dioxide 18 mmol/L (23-31); Chloride 99 mmol/L (98-107); Estimated GFR 20; Globulin 3.4 g/dL (2.4-3.5); Glucose 107 mg/dL (80-115); Potassium 5.5 mmol/L (3.5-5.1); Protein, Total 7.5 g/dL (5.8-8.1); Sodium 131 mmol/L (136-145)
[2021-12-16 18:44] LABS: Band 1 % (5-11); Eosinophils 2 % (0-10); Lymphocytes 14 % (21-51); MDiff Complete? YES; Monocytes 8 % (0-10); Neutrophil 74 % (42-75); Platelet Morphology Comment Appears Adequate; RBC Morphology Normal; Reactive Lymphocytes 1 % (0-10)
[2021-12-16 18:46] LABS: CKMB 3.5 ng/mL (0-6.6)
[2021-12-16 18:52] LABS: SARS-CoV-2 NAA Rapid Test Not Detected (NotDetected)
[2021-12-16] MEDS ORDERED: Cefepime 2 GM VIAL ONE (19:31)
[2021-12-16] MEDS ORDERED: Acetaminophen 325 MG TAB PO PRN (20:03)
[2021-12-16] MEDS ORDERED: Ondansetron PF 4 MG/2 ML Vial IVP PRN (20:03)
[2021-12-16] MEDS ORDERED: Heparin 5,000 UNITS/ML VIAL SC SCH (21:00)
[2021-12-16 21:14] LABS: Lactic Acid 1.3 mmol/L (0.5-2.2)
[2021-12-16 21:24] VITALS: BMI 28.4
[2021-12-16 21:41] LABS: Anion Gap 14 mmol/L (10-20); BUN (Urea Nitrogen) 57 mg/dL (8.4-25.7); Calc. Creatinine Clearance 36 mL/min (70-130); Calcium 8.1 mg/dL (7.8-10.44); Carbon Dioxide 18 mmol/L (23-31); Chloride 105 mmol/L (98-107); Estimated GFR 25; Glucose 110 mg/dL (80-115); Potassium 4.9 mmol/L (3.5-5.1); Sodium 132 mmol/L (136-145)
[2021-12-16] MEDS: Sodium Chloride 0.9% 1,000 ML IV SCH (21:42)
[2021-12-16] MEDS ORDERED: Lorazepam 2 MG/ML VIAL IM PRN (22:17)
[2021-12-16] MEDS ORDERED: Lorazepam 1 MG TAB PO PRN (22:17)
[2021-12-16] MEDS ORDERED: Multivit, Therapeutic 1 TAB PO SCH (22:30)
[2021-12-16] MEDS ORDERED: Folic Acid 1 MG TAB PO SCH (22:30)
[2021-12-16] MEDS ORDERED: Enoxaparin Sodium 100 MG/ML SYRINGE SC SCH (22:30)
[2021-12-16] MEDS ORDERED: Electrolyte Replacement Protocol 1 EACH FS SCH (22:30)
[2021-12-16] MEDS: Folic Acid 1 MG TAB PO SCH (22:59)
[2021-12-16] MEDS: Multivit, Therapeutic 1 TAB PO SCH (22:59)
[2021-12-16] MEDS: Famotidine/PF 20 mg/2ml Vial SLOW IVP SCH (23:01)
[2021-12-16] MEDS: Lorazepam 1 MG TAB PO SCH (23:04)
[2021-12-17 00:50] LABS: Critical Call Chem Troponin I 2NO.ADG
[2021-12-17 01:22] LABS: CKMB 7.8 ng/mL (0-6.6); Critical Call CKMB 2NO.AB1
[2021-12-17] MEDS ORDERED: Piperacillin/Tazobactam 3.375 GM in Sodium Chloride 0.9% 100 ML IVPB SCH ×2 (01:30→06:00)
[2021-12-17 05:04] LABS: #Eosinphils 0.1 thou/uL (0.0-0.7); #Lymphocytes 1.9 thou/uL (1.20-3.40); #Monocytes 0.6 thou/uL (0.11-0.59); #Neutrophils 7.9 thou/uL (1.40-6.50); %Basophils 0.3 % (0.0-1.0); %Eosinophils 0.5 % (0.0-10.0); %Lymphocytes 17.9 % (21.0-51.0); %Monocytes 5.9 % (0.0-10.0); %Neutrophils 75.5 % (42.0-75.0); Hemoglobin 14.3 g/dL (14.0-18.0); Mean Corpuscular HGB CONC 33.5 g/dL (32.0-36.0); Mean Corpuscular Hemoglobin 33.5 pg (27.0-31.0); Mean Platelet Volume 7.3 fL (7.4-10.4); Platelet Count 159 thou/uL (130-400); RBC Distribution Width 11.4 % (11.5-14.5); Red Blood Cell (RBC) Count 4.26 mill/uL (4.70-6.10); White Blood Cell (WBC) Count 10.4 thou/uL (4.8-10.8)
[2021-12-17 05:20] LABS: Anion Gap 13 mmol/L (10-20); BUN (Urea Nitrogen) 50 mg/dL (8.4-25.7); Calc. Creatinine Clearance 51 mL/min (70-130); Calcium 8.3 mg/dL (7.8-10.44); Carbon Dioxide 17 mmol/L (23-31); Chloride 108 mmol/L (98-107); Estimated GFR 39; Glucose 99 mg/dL (80-115); Magnesium 2.2 mg/dL (1.6-2.6); Potassium 5.2 mmol/L (3.5-5.1); Sodium 133 mmol/L (136-145)
[2021-12-17 05:35] LABS: Bilirubin, Direct 0.5 mg/dL (0.1-0.3); Phosphorus 3.9 mg/dL (2.3-4.7)
[2021-12-17 05:44] LABS: Troponin I 0.772 ng/mL (< 0.028)
[2021-12-17] MEDS: Lorazepam 1 MG TAB PO SCH ×4 (06:00→21:37)
[2021-12-17 08:45] LABS: Critical Call Chem Troponin I RESULT DECREASING
[2021-12-17] MEDS: Polyethylene Glycol 3350 17 GM Packet PO SCH (11:06)
[2021-12-17 11:25] LABS: Critical Call Chem Troponin I RESULT DECREASING; Troponin I 0.538 ng/mL (< 0.028)
[2021-12-17 11:31] LABS: Syphilis Antibody Nonreactive (Nonreactive); Syphilis Antibody Index 0.09 S/CO (<1.00 Non-Reactive)
[2021-12-17 11:41] LABS: Bacteria/HPF None Seen HPF (None Seen); Bilirubin Negative (Negative); Blood, Urine Negative (Negative); Clarity Clear (Clear); Glucose, Urine (Dipstick) Normal (Negative); Ketone, Urine Negative (Negative); Leukocyte Negative Leu/uL (Negative); Nitrite Negative (Negative); Protein, Urine (Dipstick) Negative (Neg-Trace); RBC/HPF 0-3 HPF (0-3); Specific Gravity, Urine 1.018 (1.002-1.036); Squamous Epithelial 0-3 HPF (0-3); Urobilinogen Normal mg/dL (Less than 2); WBC/HPF 0-3 HPF (0-3); pH, Urine 5.5 (5.0-9.0)
[2021-12-17] MEDS: Sodium Chloride 0.9% 1,000 ML IV SCH ×2 (13:41→21:26)
[2021-12-17 17:26] LABS: Campy jejuni + coli by PCR Negative (Negative); STEC Shiga Toxin 1+2 Negative (Negative); Salmonella spp. by PCR Negative (Negative); Shigella spp + EIEC by PCR Negative (Negative)
[2021-12-17] MEDS ORDERED: Enoxaparin Sodium 100 MG/ML SYRINGE SC SCH (21:00)
[2021-12-17] MEDS: Enoxaparin Sodium 100 MG/ML SYRINGE SC SCH (21:26)
[2021-12-17] MEDS: Famotidine/PF 20 mg/2ml Vial SLOW IVP SCH (21:27)
[2021-12-17] MEDS ORDERED: Lorazepam 1 MG TAB PO PRN (22:17)
[2021-12-18] MEDS: Sodium Chloride 0.9% 1,000 ML IV SCH ×3 (03:33→21:02)
[2021-12-18] MEDS: Lorazepam 1 MG TAB PO SCH ×3 (03:34→16:39)
[2021-12-18 04:35] LABS: #Basophils 0.1 thou/uL (0.0-0.2); #Eosinphils 0.1 thou/uL (0.0-0.7); #Lymphocytes 2.7 thou/uL (1.20-3.40); #Monocytes 0.6 thou/uL (0.11-0.59); #Neutrophils 6.1 thou/uL (1.40-6.50); %Basophils 0.8 % (0.0-1.0); %Eosinophils 0.9 % (0.0-10.0); %Lymphocytes 28.2 % (21.0-51.0); %Monocytes 6.4 % (0.0-10.0); %Neutrophils 63.6 % (42.0-75.0); Hemoglobin 14.2 g/dL (14.0-18.0); Mean Corpuscular HGB CONC 33.6 g/dL (32.0-36.0); Mean Corpuscular Hemoglobin 33.9 pg (27.0-31.0); Platelet Count 165 thou/uL (130-400); RBC Distribution Width 11.2 % (11.5-14.5); Red Blood Cell (RBC) Count 4.19 mill/uL (4.70-6.10); White Blood Cell (WBC) Count 9.6 thou/uL (4.8-10.8)
[2021-12-18 05:00] LABS: Anion Gap 12 mmol/L (10-20); BUN (Urea Nitrogen) 30 mg/dL (8.4-25.7); Calc. Creatinine Clearance 67 mL/min (70-130); Calcium 8.5 mg/dL (7.8-10.44); Carbon Dioxide 18 mmol/L (23-31); Chloride 109 mmol/L (98-107); Estimated GFR 54; Glucose 89 mg/dL (80-115); Sodium 134 mmol/L (136-145)
[2021-12-18] MEDS: Multivit, Therapeutic 1 TAB PO SCH (09:56)
[2021-12-18] MEDS: Folic Acid 1 MG TAB PO SCH (09:56)
[2021-12-18] MEDS: Polyethylene Glycol 3350 17 GM Packet PO SCH (09:56)
[2021-12-18] MEDS: Enoxaparin Sodium 100 MG/ML SYRINGE SC SCH ×2 (09:57→21:00)
[2021-12-18] MEDS ORDERED: Amlodipine 5 MG TAB PO SCH (17:00)
[2021-12-18] MEDS: Famotidine 20 MG TAB PO SCH (20:59)
[2021-12-18] MEDS ORDERED: Lorazepam 1 MG TAB PO PRN (22:17)
[2021-12-18] MEDS: Lorazepam 0.5 MG TAB PO SCH (22:30)
[2021-12-19 04:37] LABS: #Basophils 0.1 thou/uL (0.0-0.2); #Eosinphils 0.1 thou/uL (0.0-0.7); #Lymphocytes 2.8 thou/uL (1.20-3.40); #Monocytes 0.6 thou/uL (0.11-0.59); #Neutrophils 5.8 thou/uL (1.40-6.50); %Basophils 0.7 % (0.0-1.0); %Eosinophils 1.5 % (0.0-10.0); %Monocytes 5.9 % (0.0-10.0); %Neutrophils 61.9 % (42.0-75.0); Hemoglobin 14.4 g/dL (14.0-18.0); Mean Corpuscular HGB CONC 33.9 g/dL (32.0-36.0); Mean Corpuscular Hemoglobin 33.2 pg (27.0-31.0); Mean Corpuscular Volume 98.1 fL (78.0-98.0); Mean Platelet Volume 6.9 fL (7.4-10.4); Platelet Count 163 thou/uL (130-400); RBC Distribution Width 11.2 % (11.5-14.5); Red Blood Cell (RBC) Count 4.33 mill/uL (4.70-6.10); White Blood Cell (WBC) Count 9.4 thou/uL (4.8-10.8)
[2021-12-19 04:56] LABS: Anion Gap 11 mmol/L (10-20); BUN (Urea Nitrogen) 19 mg/dL (8.4-25.7); Calc. Creatinine Clearance 85 mL/min (70-130); Calcium 8.5 mg/dL (7.8-10.44); Carbon Dioxide 18 mmol/L (23-31); Chloride 109 mmol/L (98-107); Estimated GFR 72; Glucose 96 mg/dL (80-115); Magnesium 1.9 mg/dL (1.6-2.6); Potassium 4.8 mmol/L (3.5-5.1); Sodium 133 mmol/L (136-145)
[2021-12-19 04:59] LABS: Cardiac Risk 3.3 (Less than 4.5); Cholesterol 147 mg/dl (< 200 Desired); HDL Cholesterol 45 mg/dL (>60 Neg Risk); LDL Cholesterol, Calculated 92 mg/dL; Phosphorus 3.3 mg/dL (2.3-4.7); Triglycerides 52 mg/dL (Less than 150)
[2021-12-19 06:49] VITALS: BP 201/99; TEMP 98.3
[2021-12-19] MEDS ORDERED: Amlodipine 5 MG TAB PO SCH (09:00)
[2021-12-19] MEDS ORDERED: ADENOSINE 60 MG/20 ML VIAL ONE (09:26)
[2021-12-19] MEDS: Lorazepam 0.5 MG TAB PO SCH (11:26)
[2021-12-19] MEDS: Enoxaparin Sodium 100 MG/ML SYRINGE SC SCH (11:26)
[2021-12-19] MEDS: Multivit, Therapeutic 1 TAB PO SCH (11:27)
[2021-12-19] MEDS: Folic Acid 1 MG TAB PO SCH (11:27)
[2021-12-19] MEDS: Famotidine 20 MG TAB PO SCH (11:27)
[2021-12-19] MEDS: Polyethylene Glycol 3350 17 GM Packet PO SCH (11:27)
[2021-12-19] MEDS ORDERED: Lorazepam 0.5 MG TAB PO PRN (22:17)
[2021-12-19] MEDS ORDERED: Thiamine 100 MG TAB PO SCH (22:30)
== END 2021-12-19 15:15 | disposition home or self-care (01) | DRG 388 ==
LOC: ERS 17:32 → 2NO 20:05
PROVIDERS: ADMIT Internal Medicine; ATTEND Internal Medicine
DX: K56.7 Ileus, unspecified (principal); I21.A1 Myocardial infarction type 2; N17.9 Acute kidney failure, unspecified; E87.1 Hypo-osmolality and hyponatremia; Z66 Do not resuscitate; Z20.822 Contact with and (suspected) exposure to COVID-19; I10 Essential (primary) hypertension; F17.220 Nicotine dependence, chewing tobacco, uncomplicated; E87.6 Hypokalemia; E86.0 Dehydration; R77.8 Other specified abnormalities of plasma proteins; E87.5 Hyperkalemia; T46.4X5A Adverse effect of angiotensin-converting-enzyme inhibitors, initial encounter; F10.10 Alcohol abuse, uncomplicated; R10.9 Unspecified abdominal pain; K52.9 Noninfective gastroenteritis and colitis, unspecified; Z90.49 Acquired absence of other specified parts of digestive tract; Z90.89 Acquired absence of other organs; Z28.310 Unvaccinated for COVID-19; Z79.899 Other long term (current) drug therapy; Z82.49 Family history of ischemic heart disease and other diseases of the circulatory system
CPT/HCPCS: 36415; 71045; 74176; 78451; 78452; 80048; 80053; 80061; 81001; 82248; 82553; 83605; 83630; 83735; 83880; 84100; 84484; 85025; 85379; 86780; 87040; 87324; 87449; 87505; 93005; 93017; 93306; 94760; 96361; 96365; A9500; A9540; J0153; J0692; J1650; J2543; J3490; J7050; J7620; S0028; U0002

== ENCOUNTER 2025-01-06 10:35 | Outpatient (CLI) | payer MEDICARE | END 2025-01-06 10:36 | disposition home or self-care (01) | LOC: SCSRAD 10:35 | PROVIDERS: ATTEND Orthopaedic Surgery | DX: M54.50 Low back pain, unspecified (principal); M47.816 Spondylosis without myelopathy or radiculopathy, lumbar region | CPT/HCPCS: 72100 ==